=== PATIENT | male | born 1950 | race Caucasian/White ===

== ENCOUNTER → 2016-08-12 | Outpatient (CLI) | payer OTHER | LOC: BMCIMAGING 09:12 | PROVIDERS: ATTEND Physician Assistant | DX: M51.36 Other intervertebral disc degeneration, lumbar region (principal); M47.816 Spondylosis without myelopathy or radiculopathy, lumbar region; M43.16 Spondylolisthesis, lumbar region; M89.38 Hypertrophy of bone, other site ==

== ENCOUNTER → 2016-08-23 | Outpatient (CLI) | payer OTHER | LOC: FIMAGING 14:35 | PROVIDERS: ATTEND Physician Assistant | DX: M43.16 Spondylolisthesis, lumbar region (principal); Z96.9 Presence of functional implant, unspecified ==

== ENCOUNTER 2018-01-22 12:57 | Outpatient (CLI) | payer OTHER ==
--- NOTE | 2018-01-22 15:14 | PDGENHP ---
History & Physical Chief Complaint: rectal cancer History of Present Illness: 67 year old male presents for evaluation of a rectal cancer Pertinent Past, Social, Family History: PMHx: KIKA Relevant Physical Exam: HEENT: anicteric. Cv: RRR +s1s2. Lungs: CTAB. Abd: soft, nt, + BS Cardiorespiratory Assessment: ASA 2
[2018-01-22] MEDS ORDERED: INDOMETHACIN 50 MG SUPP PR PRN (15:15)
[2018-01-22] MEDS ORDERED: NS 500 ML IV SCH (15:15)
--- NOTE | 2018-01-22 15:48 | GIREPORT ---
[facility] Surgical Services - Endoscopy Department Patient Name: Richard Aguilera Procedure Date: 01/22/2018 3:11 PM Patient Type: Outpatient Attending / ER Physician: Sylvester Jones MD Procedure: Lower EUS Indications: Pre-treatment staging for anorectal carcinoma Patient Profile: 67 year old male presents for staging of a rectal cancer. Providers: Sylvester Jones MD Medicines: None Complications: No immediate complications. Estimated blood loss: Minimal. Description of Procedure: After obtaining informed consent, the endoscope was passed under direct vision. Throughout the procedure, the patient's blood pressure, pulse, and oxygen saturations were monitored continuously. The Endosonoscope was introduced through the anus and advanced to the sigmoid colon. The Colonoscope was introduced through the anus and advanced to the sigmoid colon for ultrasound. The lower EUS was accomplished without difficulty . The patient tolerated the procedure well. The quality of the bowel preparat ion was good. The lower EUS was accomplished without difficulty. Findings: The digital rectal exam revealed a firm rectal mass. Endoscopic Finding : A fungating, infiltrative and ulcerated non-obstructing large mass was found in the rectum. The mass was partially circumferential (involving one-goncalves lf of the lumen circumference). Biopsies were taken with a cold forceps for histology. A 3 mm polyp was found in the sigmoid colon. The polyp was sessile. Bio psies were taken with a cold forceps for histology. Endosonographic Finding : A hypoechoic mass was found in the rectum. The mass was encountered at 3 cm (from the anal verge). The mass was non-circumferential and located predominantly at the left rectal wall. The endosonographic borders were irregular. There was sonographic evidence suggesting breakthrough of th e muscularis propria with invasion into the perirectal fat (Layer 5, manifested by prominent pseudopodia). No lymph nodes were seen in the perirectal region. Estimated Blood Loss: Estimated blood loss was minimal. Post Op Diagnosis: - Malignant tumor in the rectum. Biopsied. - One 3 mm polyp in the sigmoid colon. Biopsied. - No lymph nodes were seen in the perirectal region during endosonograp hic examination. - Rectal mass was visualized endosonographically. This was staged uT3 u N0. Recommendation: - Discharge patient to home (with escort). - Await path results. - Follow up oncology and surgery - Thank you for allowing me to participate in the care of your patient. Attending Participation: I personally performed the entire procedure. Sylvester Jones MD Sylvester Jones MD 01/22/2018 3:48:19 PM This report has been signed electronicallySylvester Jones MD Number of Addenda: 0 Note Initiated On: 01/22/2018 3:11 PM [email or web address]
[2018-01-22 16:21] VITALS: BP 110/68
== END 2018-01-22 16:16 | disposition home or self-care (01) ==
LOC: FIMAGING 12:57 → FSGY 16:16
PROVIDERS: ATTEND Internal Medicine Hematology & Oncology
DX: C19 Malignant neoplasm of rectosigmoid junction (principal)

== ENCOUNTER 2018-11-15 12:23 | Inpatient (IN) | payer OTHER | END 2018-11-18 14:30 | disposition home or self-care (01) | LOC: F3N 16:10 ==